=== PATIENT | male | born 1975 | race Two or more races ===

== ENCOUNTER 2016-07-10 15:07 | Emergency (ER) | payer OTHER ==
[~2016-07-10] VITALS: Ht 188 cm; Wt 89.8 kg
[2016-07-10] MEDS ORDERED: NORCO, ANEXSIA 5/325MG TABLET (HYDROcodone/ACETAMINOPHEN) PO ONE (15:45)
[2016-07-10] MEDS ORDERED: LIDOCAINE 1% SDV INJ 30 ML VIAL SC SCH (15:45)
[2016-07-10] MEDS ORDERED: BUPIVACAINE HCL 0.5% 10 ML VIAL SC ONE (16:15)
[2016-07-10] MEDS ORDERED: HYDR-3713 PO (16:26)
[2016-07-10] MEDS ORDERED: BACT800T5 PO (16:26)
[2016-07-10 16:34] VITALS: BP 165/109
== END 2016-07-10 16:37 | disposition home or self-care (01) ==
LOC: M ED 16:30
DX: L02.31 Cutaneous abscess of buttock (principal); L02.213 Cutaneous abscess of chest wall; M54.12 Radiculopathy, cervical region

== ENCOUNTER → 2016-07-14 | Outpatient (REF) | payer OTHER, SELFPAY ==
[~2016-07-14] MED LIST: BACT800T5 PO; HYDR-3713 PO
== END ==
LOC: EEVIPCON 10:44 → M SFHCPLAZ 10:44
PROVIDERS: ATTEND Family Medicine
DX: L02.91 Cutaneous abscess, unspecified (principal)

== ENCOUNTER 2016-10-27 16:08 | Emergency (ER) | payer OTHER, SELFPAY ==
[~2016-10-27] VITALS: Ht 188 cm; Wt 90.9 kg
[2016-10-27] MEDS ORDERED: IBUP-1022 PO ×2 (16:49→18:07)
[2016-10-27] MEDS ORDERED: CYCL10TA PO (18:07)
[2016-10-27 18:16] VITALS: BP 154/111
--- NOTE | 2016-10-27 18:39 | REP ---
LEFT SHOULDER, THREE VIEWS: There is no evidence of an acute fracture, dislocation or intrinsic bone disease. IMPRESSION: No fracture or dislocation. Signed by Isaiah Golden MD 10/28/2016 04:38 P
== END 2016-10-27 18:20 | disposition home or self-care (01) ==
LOC: M ED 16:08
DX: M54.12 Radiculopathy, cervical region (principal); M54.16 Radiculopathy, lumbar region; I10 Essential (primary) hypertension

== ENCOUNTER 2017-07-29 18:24 | Emergency (ER) | payer SELFPAY, OTHER | END 2017-07-29 18:54 | disposition left against medical advice (07) | LOC: M ED 18:24 | DX: J00 Acute nasopharyngitis [common cold] (principal); Z53.21 Procedure and treatment not carried out due to patient leaving prior to being seen by health care provider ==

== ENCOUNTER 2018-01-25 13:43 | Emergency (ER) | payer SELFPAY, OTHER ==
[2018-01-25] MEDS: LISINOPRIL 20 MG TAB PO (14:30)
== END 2018-01-25 14:41 | disposition home or self-care (01) ==
LOC: M ED 13:43
DX: J32.9 Chronic sinusitis, unspecified (principal)
CPT/HCPCS: 99283

== ENCOUNTER 2018-07-15 20:37 | Emergency (ER) | payer OTHER, SELFPAY ==
[~2018-07-15] VITALS: Ht 188 cm; Wt 92.1 kg
[~2018-07-15 20:37] MED LIST changes: +ALLE12TA31 PO; +AUGM875T28 PO; +CYCL10TA PO; +CYCL5TAB PO; +IBUP-1022 PO; +LISI10TA4 PO; +PERC5TAB12 PO
[2018-07-16] MEDS ORDERED: SILVER NITRATE APPLICATOR TOP ONE (00:15)
[2018-07-16] MEDS ORDERED: AUGMENTIN 875 MG TAB PO ONE (00:15)
[2018-07-16] MEDS ORDERED: predniSONE 20 MG TAB PO ONE (00:15)
[2018-07-16 00:29] VITALS: BP 184/127
[2018-07-16] MEDS ORDERED: PRED20TA PO (00:46)
[2018-07-16] MEDS ORDERED: AUGM875T28 PO (00:46)
[2018-07-16] MEDS ORDERED: LISI10TA4 PO (00:46)
== END 2018-07-16 00:55 | disposition home or self-care (01) ==
LOC: M ED 20:37
DX: J32.0 Chronic maxillary sinusitis (principal); H66.91 Otitis media, unspecified, right ear; I10 Essential (primary) hypertension; Z79.899 Other long term (current) drug therapy; F17.210 Nicotine dependence, cigarettes, uncomplicated

== ENCOUNTER 2018-10-15 19:40 | Emergency (ER) | payer OTHER ==
[~2018-10-15] VITALS: Ht 188 cm; Wt 86.4 kg
[~2018-10-15 19:40] MED LIST changes: +PRED20TA PO
[2018-10-15] MEDS ORDERED: ADACEL/BOOSTRIX VACCINE (DIPHTH/PERTUSS/ACELL/TETANUS)0.5ML SYR (90715) IM ONE (20:45)
[2018-10-15] MEDS ORDERED: IBUPROFEN 600 MG TAB PO ONE (21:00)
[2018-10-15] MEDS ORDERED: CEPHALEXIN 500 MG CAP PO ONE (21:30)
[2018-10-15] MEDS ORDERED: IBUP-1022 PO (21:31)
[2018-10-15] MEDS ORDERED: KEFL500C17 PO (21:31)
[2018-10-15 21:40] VITALS: BP 135/90
--- NOTE | 2018-10-16 09:59 | REP ---
REASON: Pain after trauma. FINDINGS: The joint spaces are symmetric and relatively well maintained. There is no evidence of acute fracture or destructive osseous lesion. IMPRESSION: Negative. Electronically Signed by Shayne Bowen DO 10/16/2018 09:08 A
== END 2018-10-15 21:48 | disposition home or self-care (01) ==
LOC: M ED 19:40
DX: S91.331A Puncture wound without foreign body, right foot, initial encounter (principal); W45.0XXA Nail entering through skin, initial encounter; Y92.099 Unspecified place in other non-institutional residence as the place of occurrence of the external cause; Y93.9 Activity, unspecified; Y99.9 Unspecified external cause status; I10 Essential (primary) hypertension; Z72.0 Tobacco use

== ENCOUNTER 2018-10-19 13:31 | Emergency (ER) | payer OTHER ==
[~2018-10-19] VITALS: Ht 188 cm; Wt 90.0 kg
[~2018-10-19 13:31] MED LIST changes: +KEFL500C17 PO
[2018-10-19] MEDS ORDERED: IBUPROFEN 800 MG TAB PO ONE (15:15)
[2018-10-19 15:45] LABS: HEMATOCRIT 47.9 % (42.0-52.0); HEMOGLOBIN 16.6 g/dl (13.5-17.5); MEAN CORPUSCULAR HEMOGLOBIN 35.5 pg (27.0-33.0); MEAN CORPUSCULAR HGB CONC 34.7 g/dl (32.0-36.5); MEAN CORPUSCULAR VOLUME 102.4 fl (80.0-96.0); PLATELET COUNT, AUTOMATED 250 10^3/uL (150-450); RED BLOOD COUNT 4.68 10^6/uL (4.30-6.10); WHITE BLOOD COUNT 8.9 10^3/uL (4.0-10.0)
--- NOTE | 2018-10-19 16:00 | REP ---
REASON: Pain and swelling. No trauma. FINDINGS: The joint spaces are symmetric and relatively well maintained. There is no evidence of acute fracture or destructive osseous lesion. IMPRESSION: Negative. There is no significant change compared to the prior examination of 10/15/2018. Electronically Signed by Shayne Bowen DO 10/19/2018 05:10 P
[2018-10-19 16:03] LABS: C REACTIVE PROTEIN QUANTITATIV 5.43 MG/DL (0.00-0.30); ERYTHROCYTE SEDIMENTATION RATE 14 mm/hr (0-15)
[2018-10-19 16:08] VITALS: BP 170/100
[2018-10-19] MEDS ORDERED: BACTRIM 160MG/800MG DS TAB PO ONE (16:30)
[2018-10-19] MEDS ORDERED: LOSARTAN 25 MG TAB PO ONE (16:30)
[2018-10-19 16:48] LABS: BLOOD UREA NITROGEN 11 MG/DL (7-18); CALCIUM LEVEL 9.2 MG/DL (8.5-10.1); CARBON DIOXIDE LEVEL 28 MEQ/L (21-32); CHLORIDE LEVEL 108 MEQ/L (98-107); CREATININE FOR GFR 0.74 MG/DL (0.70-1.30); GLOMERULAR FILTRATION RATE > 60.0 (>60); GLUCOSE, FASTING 97 MG/DL (70-100); POTASSIUM SERUM 4.6 MEQ/L (3.5-5.1); SODIUM LEVEL 141 MEQ/L (136-145)
[2018-10-19] MEDS ORDERED: BACT800T5 PO (16:54)
[2018-10-19] MEDS ORDERED: LOSA25TA14 PO (16:54)
== END 2018-10-19 17:02 | disposition home or self-care (01) ==
LOC: M ED 13:31
DX: I10 Essential (primary) hypertension (principal); L03.115 Cellulitis of right lower limb; S91.331A Puncture wound without foreign body, right foot, initial encounter; W45.0XXA Nail entering through skin, initial encounter; Y92.89 Other specified places as the place of occurrence of the external cause; Z79.899 Other long term (current) drug therapy; F17.210 Nicotine dependence, cigarettes, uncomplicated

== ENCOUNTER → 2019-01-07 | Outpatient (REF) | payer OTHER ==
[~2019-01-07] MED LIST changes: +LOSA25TA14 PO
[2019-01-07 10:30] LABS: ALBUMIN 3.4 GM/DL (3.2-5.2); ALT/SGPT 34 U/L (12-78); BILIRUBIN,TOTAL 0.6 MG/DL (0.2-1.0); BLOOD UREA NITROGEN 10 MG/DL (7-18); CALCIUM LEVEL 8.6 MG/DL (8.5-10.1); CARBON DIOXIDE LEVEL 29 MEQ/L (21-32); CHLORIDE LEVEL 107 MEQ/L (98-107); CREATININE FOR GFR 0.96 MG/DL (0.70-1.30); GLOMERULAR FILTRATION RATE > 60.0 (>60); GLUCOSE, FASTING 102 MG/DL (70-100); SODIUM LEVEL 141 MEQ/L (136-145)
== END ==
LOC: M SFHCPLAZ 08:24
PROVIDERS: ATTEND Family Medicine
DX: I10 Essential (primary) hypertension (principal)

== ENCOUNTER → 2019-01-20 | Outpatient (CLI) | payer OTHER ==
--- NOTE | 2019-01-20 18:34 | REP ---
CT maxillary sinuses: 01/20/2019. Indication: Sinusitis. Operative planning. Comparison: None. Findings: There is complete soft tissue opacification of the left nasal cavity and paranasal sinuses including the left sinonasal passageways. The right paranasal sinuses are clear. There is minimal rightward deviation of the nasal septum. Small left mastoid effusion is present. There is demineralization of the left lamina papyracea and soft tissue extending into the medial aspect of the left orbit inferiorly. No significant intracranial abnormalities are detected. Impression: Extensive left-sided paranasal sinus mucosal disease and soft tissue within the left nasal cavity as described with nasal cavity mass/polyp suspected. Please correlate with direct inspection. Electronically Signed by Neo Thomas DO 01/20/2019 06:25 P
== END ==
LOC: M RAD 17:48
PROVIDERS: ATTEND Otolaryngology
DX: J32.0 Chronic maxillary sinusitis (principal)

== ENCOUNTER 2019-02-19 14:12 | Emergency (ER) | payer OTHER ==
[~2019-02-19] VITALS: Ht 188 cm; Wt 92.0 kg
[2019-02-19] MEDS ORDERED: ISOVUE-370 76% 100ML VIAL (Q9967) As Ordered ONE (15:05)
[2019-02-19 15:18] LABS: BASO % 0.3 % (0.0-1.0); HEMATOCRIT 49.8 % (42.0-52.0); HEMOGLOBIN 16.8 g/dl (13.5-17.5); LYMPH # 0.9 10^3/uL (1.5-5.0); LYMPH % 6.2 % (24.0-44.0); MEAN CORPUSCULAR HEMOGLOBIN 34.5 pg (27.0-33.0); MEAN CORPUSCULAR HGB CONC 33.7 g/dl (32.0-36.5); MEAN CORPUSCULAR VOLUME 102.3 fl (80.0-96.0); MONO # 0.9 10^3/uL (0.0-0.8); MONO % 6.5 % (0.0-5.0); NEUTROPHILS # 11.9 10^3/uL (1.5-8.5); NEUTROPHILS % 85.8 % (36.0-66.0); PLATELET COUNT, AUTOMATED 331 10^3/uL (150-450); RED BLOOD COUNT 4.87 10^6/uL (4.30-6.10); WHITE BLOOD COUNT 13.9 10^3/uL (4.0-10.0)
[2019-02-19 15:31] LABS: PROTHROMBIN TIME 12.9 SECONDS (11.8-14.0)
[2019-02-19 15:32] LABS: PARTIAL THROMBOPLASTIN TIME 29.9 SECONDS (25.0-38.4)
--- NOTE | 2019-02-19 15:33 | REP ---
Portable chest x-ray: Single view. History: CVA. Findings: The lungs are symmetrically aerated and clear. Pleural angles are sharp. Heart size is normal. EKG monitoring electrodes overlie the chest. Pulmonary vasculature is not increased. Impression: Negative portable chest x-ray. Electronically Signed by Tom Collazo MD 02/19/2019 03:25 P
[2019-02-19 15:40] LABS: CK-MB VALUE MASS < 1.0 NG/ML (<3.6); CPK CREATINE PHOSPHOKINASE 42 U/L (39-308); MB/CK RELATIVE INDEX 2.38 (< OR =4); TROPONIN I < 0.02 NG/ML (< 0.10)
[2019-02-19] MEDS ORDERED: MORPHINE 4 MG/ML 1ML VIAL/SYRINGE (J2270) IV ONE (15:45)
[2019-02-19] MEDS ORDERED: ONDANSETRON 4MG/2ML VIAL (J2405) IV ONE (16:00)
[2019-02-19] MEDS ORDERED: MORPHINE 2 MG/ML 1ML VIAL (J2270) IV ONE (16:00)
[2019-02-19] MEDS ORDERED: TETRACAINE 0.5% OPHTH SOLN 4ML OS ONE (16:00)
[2019-02-19 16:12] LABS: ERYTHROCYTE SEDIMENTATION RATE 3 mm/hr (0-15)
[2019-02-19] MEDS ORDERED: dexameTHASONE 20 MG/5 ML VIAL (J1100) IV ONE (16:45)
[2019-02-19] MEDS ORDERED: PIPERACILLIN/TAZOBACTAM SOD 4.5 GM in D5W MINI-BAG PLUS 50 ML IV ONE (16:45)
[2019-02-19 19:08] VITALS: BP 163/90
--- NOTE | 2019-02-20 06:46 | REP ---
CT brain without contrast: History: CVA. Comparison CT study January 20, 2019. Findings: Bony calvarium is intact. There is complete opacification of the left frontal, left ethmoid, and left maxillary sinuses. There is erosion of the medial wall of the left maxillary sinus with soft tissue filling the left nasal cavity completely. The left sphenoid sinus is opacified. A left maxillary sinus/nasal cavity mass must be suspected. This is unchanged from January 20, 2019. The medial wall of the left orbit is eroded and there is extraconal orbital disease on the left deviating the medial rectus muscle somewhat. This appears somewhat more pronounced than on the January 20, 2019 study. No intraorbital mass is seen on the right. There is no evidence of intracranial hemorrhage. No infarct, mass, extra-axial fluid collection or midline shift is seen. Impression: No acute intracranial abnormality. 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 The nasal cavity is filled on the left as well. Sinonasal neoplasm such as lymphoma, angiofibroma, and squamous cell malignancy must be excluded. Invasive fungal sinusitis may be a possibility as well. Findings are more prominent than on January 20, 2019. Electronically Signed by Tom Collazo MD 02/20/2019 08:44 A
--- NOTE | 2019-02-20 07:03 | REP ---
CT angiography of the neck with IV contrast: History: CVA. CT contrast dose: 100 mL of intravenous Isovue [address] findings: Aortic arch enhances homogeneously and is intact. Great vessel origins are unremarkable. The vertebral arteries are patent and codominant. Common carotid arteries are unremarkable bilaterally. There is minimal atherosclerotic plaquing in the bifurcation on the left with calcification. No stenosis. The carotid bifurcation on the right is unremarkable. The distal internal carotid arteries are tortuous but unremarkable and symmetric. Maximum intensity projection images and surface rendered color 3-D images show no additional finding. Impression: Minimal atherosclerotic plaquing at the carotid bifurcation on the left. No stenosis seen. Otherwise unremarkable CT angiography of the neck. Electronically Signed by Tom Collazo MD 02/20/2019 08:45 A
--- NOTE | 2019-02-20 07:07 | REP ---
CT angiography of the brain with IV contrast: History: CVA. CT contrast dose: 100 mL of intravenous Isovue [address] angiographic findings: The distal vertebral arteries are patent and symmetric. Basilar artery is widely patent. Posterior cerebral and superior cerebellar vessels are intact. The distal internal carotid artery show no significant abnormality. Anterior and middle cerebral arteries are unremarkable. There is no evidence of fletcher aneurysm or arteriovenous malformation. No vessel cutoff is appreciated. Enhancement is seen in the nasal and left maxillary and ethmoid sinus mass lesion. The straight sinus and sigmoid sinuses are intact although the left sigmoid sinus is smaller than the right. The sagittal dural sinus appears intact. Impression: Unremarkable CT angiography of the brain with IV contrast. Electronically Signed by Tom Collazo MD 02/20/2019 08:45 A
--- NOTE | 2019-02-20 19:38 | ECGEPIP ---
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
== END 2019-02-19 19:12 | disposition short-term general hospital (02) ==
LOC: M ED 14:12
DX: J34.89 Other specified disorders of nose and nasal sinuses (principal); G43.909 Migraine, unspecified, not intractable, without status migrainosus; I10 Essential (primary) hypertension; F17.210 Nicotine dependence, cigarettes, uncomplicated
CPT/HCPCS: 36415; 70450; 70496; 70498; 71045; 80047; 82550; 82553; 85025; 85610; 85652; 85730; 86850; 86900; 86901; 87040; 93005; 93041; 94760; 96365; 96375; 99285; J1100; J2270; J2405; J2543; Q9967

== ENCOUNTER 2020-10-28 23:53 | Emergency (ER) | payer OTHER ==
[~2020-10-28] VITALS: Ht 188 cm; Wt 70.0 kg
[~2020-10-28 23:53] MED LIST changes: +CYCL-707 PO; -CYCL10TA PO; +LISI10TA22 PO; -LISI10TA4 PO
[2020-10-29] VITALS: BP 151/114
== END 2020-10-29 00:25 | disposition left against medical advice (07) ==
LOC: M ED 23:53
DX: R04.0 Epistaxis (principal); R51.9 Headache, unspecified; Z53.9 Procedure and treatment not carried out, unspecified reason; I10 Essential (primary) hypertension